=== PATIENT | male | born 1980 | race Caucasian/White ===

== ENCOUNTER 2016-03-08 06:59 | Emergency (ER) | payer SELFPAY ==
[2016-03-08] MEDS ORDERED: ONDANSETRON 4 MG VIAL ONE (07:31)
[2016-03-08] MEDS ORDERED: SODIUM CHLORIDE 0.9% 1,000 ML ONE (08:55)
== END 2016-03-08 11:03 | disposition home or self-care (01) ==
LOC: ER 06:59
DX: I95.1 Orthostatic hypotension (principal); F41.1 Generalized anxiety disorder; F32.9 Major depressive disorder, single episode, unspecified; F15.20 Other stimulant dependence, uncomplicated; Z79.899 Other long term (current) drug therapy
CPT/HCPCS: 36415; 80053; 80320; 80329; 83690; 84439; 84443; 85025; 96361; 96374